=== PATIENT | male | born 1970 | race African-American/Black ===

== ENCOUNTER 2018-08-05 14:52 | Emergency (ER) | payer BC, MEDICARE ==
--- NOTE | 2018-08-05 15:07 | ER Document Report ---
ED Medical Screen (RME) - General Chief Complaint: Syncope Stated Complaint: POSSIBLE SYNCOPE Time Seen by Provider: 08/05/18 15:05 Primary Care Provider: OBIE AUGUSTE [Primary Care Provider] - Follow up as needed Mode of Arrival: Wheelchair Information source: Patient, Relative TRAVEL OUTSIDE OF THE [place] IN LAST 30 DAYS: No - HPI Patient complains to provider of: possible seizure Onset: Just prior to arrival - pt with possible seizure at [facility] this afternoon - Related Data Allergies/Adverse Reactions: No Known Allergies Allergy (Unverified 08/05/18 14:55) Physical Exam - Vital signs Vitals: Temp Pulse Resp BP Pulse Ox 97.6 F 80 16 110/72 99 08/05/18 14:55 08/05/18 14:55 08/05/18 14:55 08/05/18 14:55 08/05/18 14:55 Course - Vital Signs Vital signs: Temp Pulse Resp BP Pulse Ox 97.6 F 80 16 110/72 99 08/05/18 14:55 08/05/18 14:55 08/05/18 14:55 08/05/18 14:55 08/05/18 14:55 Doctor's Discharge - Discharge Referrals: OBIE AUGUSTE [Primary Care Provider] - Follow up as needed
[2018-08-05 15:48] LABS: ABSOLUTE BASOPHILS # (AUTO) 0.1 10^3/uL (0.0-0.2); ABSOLUTE LYMPHOCYTES (AUTO) 1.1 10^3/uL (0.5-4.7); ABSOLUTE MONOCYTES (AUTO) 0.4 10^3/uL (0.1-1.4); BASOPHILS % (AUTO) 1.2 % (0-2); EOSINOPHILS % (AUTO) 0.2 % (0-6); HEMATOCRIT 42.5 % (37.9-51.0); HEMOGLOBIN 14.5 g/dL (13.5-17.0); MEAN CORPUSCULAR HEMOGLOBIN 31.4 pg (27.0-33.4); MEAN CORPUSCULAR HGB CONC 34.1 g/dL (32.0-36.0); MEAN CORPUSCULAR VOLUME 92 fl (80-97); MONOCYTES % (AUTO) 9.4 % (3-13); PLATELET COUNT 153 10^3/uL (150-450); RED BLOOD COUNT 4.61 10^6/uL (4.35-5.55); RED CELL DISTRIBUTION WIDTH 14.4 % (11.5-14.0); SEGMENTED NEUTROPHILS % (AUTO) 65.2 % (42-78); TOTAL CELLS COUNTED % (AUTO) 100 %; WHITE BLOOD COUNT 4.6 10^3/uL (4.0-10.5)
[2018-08-05 15:56] LABS: APPEARANCE,URINE SLIGHTLY-CLOUDY; BILIRUBIN,URINE NEGATIVE (NEGATIVE); COLOR,URINE YELLOW; GLUCOSE, URINE 50 mg/dL (NEGATIVE); KETONES,URINE 20 mg/dL (NEGATIVE); LEUKOCYTE ESTERASE,URINE NEGATIVE (NEGATIVE); NITRITE,URINE NEGATIVE (NEGATIVE); PROTEIN,URINE 100 mg/dL (NEGATIVE); URINE SPECIFIC GRAVITY 1.021
[2018-08-05 16:00] LABS: ALANINE AMINOTRANSFERASE 32 U/L (21-72); ALBUMIN 4.8 g/dL (3.5-5.0); ALKALINE PHOSPHATASE 52 U/L (38-126); ANION GAP 10 (5-19); ASPARTATE AMINO TRANSFERASE 22 U/L (17-59); BILIRUBIN,DIRECT 0.1 mg/dL (0.0-0.4); BILIRUBIN,TOTAL 0.6 mg/dL (0.2-1.3); BLOOD UREA NITROGEN 14 mg/dL (7-20); CALCIUM 9.4 mg/dL (8.4-10.2); CARBON DIOXIDE 29 mmol/L (22-30); CHLORIDE 103 mmol/L (98-107); GLUCOSE 172 mg/dL (75-110); POTASSIUM 3.5 mmol/L (3.6-5.0); SODIUM 142.3 mmol/L (137-145); TOTAL PROTEIN 7.7 g/dL (6.3-8.2)
[2018-08-05 16:05] LABS: URINE AMPHETAMINES SCREEN NEGATIVE; URINE BARBITURATES SCREEN NEGATIVE; URINE BENZODIAZEPINES SCREEN NEGATIVE; URINE COCAINE SCREEN NEGATIVE; URINE MARIJUANA (THC) SCREEN NEGATIVE; URINE METHADONE SCREEN NEGATIVE; URINE PHENCYCLIDINE SCREEN NEGATIVE
[2018-08-05] MEDS ORDERED: NORMAL SALINE 1000 ML 1,000 ML IV ONE (17:14)
--- NOTE | 2018-08-05 17:28 | ER Document Report ---
ED General - General Chief Complaint: Syncope Stated Complaint: POSSIBLE SYNCOPE Time Seen by Provider: 08/05/18 15:05 Primary Care Provider: OBIE AUGUSTE [NO LOCAL MD] - Follow up as needed Mode of Arrival: Wheelchair Notes: 48-year-old male to the emergency department chief complaint of. Patient was in the yu chair getting a haircut when he slumped over appearing to be asleep. This happened twice. Patient has long-standing history of this happening. Family members are present in the room and states that this is been going on since the late . Patient denies any symptoms at this time. Denies any headache, fever, chills, sweats. Denies any neck stiffness. Denies any recent illness. Of note, patient is taking care of by his mother. She was in the hospital last week and he was pretty much on his own. Has not been eating well. Patient does state that he is hungry. TRAVEL OUTSIDE OF THE [place] IN LAST 30 DAYS: No - HPI Onset: Just prior to arrival Severity: Mild Pain Level: Denies Associated symptoms: Slow to respond - Related Data Allergies/Adverse Reactions: No Known Allergies Allergy (Unverified 08/05/18 14:55) Past Medical History - General Information source: Patient, Relative - Social History Smoking Status: Never Smoker Frequency of alcohol use: None Drug Abuse: None Lives with: Family Family History: Reviewed & Not Pertinent Patient has suicidal ideation: No Patient has homicidal ideation: No Neurological Medical History: Reports: Hx Seizures Renal/ Medical History: Denies: Hx Peritoneal Dialysis Psychiatric Medical History: Reports: Hx Schizophrenia Review of Systems - Review of Systems Notes: Constitutional: denies: Chills, Diaphoresis, Fever, Malaise, Weakness EENT: denies: Eye discharge, Blurred vision, Tearing, Double vision, Nose congestion, Nose discharge, Throat swelling, Mouth pain Cardiovascular: denies: Palpitations, Heart racing, Orthopnea, Dyspnea, Chest pain Respiratory: denies: Cough, Hurts to breathe, Wheezing, Shortness of breath Gastrointestinal: denies: Abdominal pain, Diarrhea, Nausea, Vomiting, Black stools, bright red blood in stool Genitourinary: denies: Burning, Dysuria, Discharge, Frequency, Flank pain, Hematuria Musculoskeletal: denies: Joint pain, Joint swelling, Muscle pain, Muscle stiffness, back pain Hematologic/Lymphatic: denies: Anemia, Easy bleeding, Easy bruising, Blood clots Neurological/Psychological: denies: Dementia, Depression, Loss of consciousness. Complaining of confusion and falling asleep Skin: No lesions, no masses, no skin breakdown, no abscesses Physical Exam - Vital signs Vitals: Temp Pulse Resp BP Pulse Ox 97.6 F 80 16 110/72 99 08/05/18 14:55 08/05/18 14:55 08/05/18 14:55 08/05/18 14:55 08/05/18 14:55 Interpretation: Normal - General General appearance: Appears well, Alert - HEENT Head: Normocephalic, Atraumatic Eyes: Normal Pupils: PERRL Neck: Normal, Supple. No: Brudzinski, Kernig's, Lymphadenopathy, Meningismus, Neck mass, Subcutaneous emphysema - Respiratory Respiratory status: No respiratory distress Chest status: Nontender Breath sounds: Normal Chest palpation: Normal - Cardiovascular Rhythm: Regular Heart sounds: Normal auscultation Murmur: No - Abdominal Inspection: Normal Distension: No distension Bowel sounds: Normal Tenderness: Nontender. No: Tender, McBurney's point, Remy's sign, Guarding Organomegaly: No organomegaly - Back Back: Normal, Nontender - Extremities General upper extremity: Normal inspection, Nontender, Normal color, Normal ROM, Normal temperature General lower extremity: Normal inspection, Nontender, Normal color, Normal ROM, Normal temperature, Normal weight bearing. No: Evaristo's sign - Neurological Neuro grossly intact: Yes Cognition: Normal Orientation: AAOx4 Jon Coma Scale Eye Opening: Spontaneous Jon Coma Scale Verbal: Oriented Jon Coma Scale Motor: Obeys Commands Jon Coma Scale Total: 15 Speech: Normal Motor strength normal: LUE, RUE, LLE, RLE Sensory: Normal - Psychological Associated symptoms: Normal affect, Normal mood - Skin Skin Temperature: Warm Skin Moisture: Dry Skin Color: Normal Course - Re-evaluation Re-evalutation: 08/05/18 17:35 Patient is a little sleepy. Patient has pretty severe schizophrenia so more lik carlos this represents a spectrum of his disease. He also has a history of seizure disorder in the record. More likely patient had a seizure. Also of note, he has had poor nutrition over the last week. Does have ketones in the urine. I did orthostatic vital signs on him. His systolic blood pressure dropped by 20 points. He was mildly symptomatic when going from lying to standing. I am giving him a liter bolus of fluid at this time. His EKG shows a normal sinus rhythm with no signs of ischemia. His labs reveal slightly elevated blood sugar with ketones and glucose in the urine. Drug screen is negative. He does not have a fever or elevated WBC count so unlikely this represents an infection. He has no nuchal rigidity so unlikely he has meningitis. He did not hit his head so unlikely trauma. Patient does not appear to have any acidosis. His venous pH is unremarkable. His hemoglobin A1c is 5. Feel comfortable discharging at this time. Has outpatient access to medical care. Family members are comfortable with this plan. I will discharge at this time in stable condition. 08/05/18 17:36 08/05/18 18:40 Laboratory 08/05/18 08/05/18 08/05/18 15:26 15:26 15:26 WBC 4.6 RBC 4.61 Hgb 14.5 Hct 42.5 MCV 92 MCH 31.4 MCHC 34.1 RDW 14.4 H Plt Count 153 Seg Neutrophils % 65.2 Lymphocytes % 24.0 Monocytes % 9.4 Eosinophils % 0.2 Basophils % 1.2 Absolute Neutrophils 3.0 Absolute Lymphocytes 1.1 Absolute Monocytes 0.4 Absolute Eosinophils 0.0 Absolute Basophils 0.1 VBG pH VBG pCO2 VBG HCO3 VBG Base Excess Sodium 142.3 Potassium 3.5 L Chloride 103 Carbon Dioxide 29 Anion Gap 10 BUN 14 Creatinine 0.97 Est GFR ( Amer) > 60 Est GFR (Non-Af Amer) > 60 Glucose 172 H Hemoglobin A1c % Calcium 9.4 Total Bilirubin 0.6 Direct Bilirubin 0.1 Neonat Total Bilirubin Not Reportable Neonat Direct Bilirubin Not Reportable Neonat Indirect Bili Not Reportable AST 22 ALT 32 Alkaline Phosphatase 52 Total Protein 7.7 Albumin 4.8 Urine Color YELLOW Urine Appearance SLIGHTLY-CLOUDY Urine pH 6.0 Ur Specific [place] 1.021 Urine Protein 100 H Urine Glucose (UA) 50 H Urine Ketones 20 H Urine Blood SMALL H Urine Nitrite NEGATIVE Urine Bilirubin NEGATIVE Urine Urobilinogen 4.0 H Ur Leukocyte Esterase NEGATIVE Urine WBC (Auto) 6 Urine RBC (Auto) 2 Squamous Epi Cells Auto <1 Urine Mucus (Auto) MOD Urine Ascorbic Acid NEGATIVE Urine Opiates Screen Urine Methadone Screen Ur Barbiturates Screen Ur Phencyclidine Scrn Ur Amphetamines Screen U Benzodiazepines Scrn Urine Cocaine Screen U Marijuana (THC) Screen 08/05/18 08/05/18 08/05/18 15:26 17:20 17:20 WBC RBC Hgb Hct MCV MCH MCHC RDW Plt Count Seg Neutrophils % Lymphocytes % Monocytes % Eosinophils % Basophils % Absolute Neutrophils Absolute Lymphocytes Absolute Monocytes Absolute Eosinophils Absolute Basophils VBG pH 7.38 VBG pCO2 52.5 VBG HCO3 30.5 VBG Base Excess 4.1 Sodium Potassium Chloride Carbon Dioxide Anion Gap BUN Creatinine Est GFR ( Amer) Est GFR (Non-Af Amer) Glucose Hemoglobin A1c % 5.0 Calcium Total Bilirubin Direct Bilirubin Neonat Total Bilirubin Neonat Direct Bilirubin Neonat Indirect Bili AST ALT Alkaline Phosphatase Total Protein Albumin Urine Color Urine Appearance Urine pH Ur Specific [place] Urine Protein Urine Glucose (UA) Urine Ketones Urine Blood Urine Nitrite Urine Bilirubin Urine Urobilinogen Ur Leukocyte Esterase Urine WBC (Auto) Urine RBC (Auto) Squamous Epi Cells Auto Urine Mucus (Auto) Urine Ascorbic Acid Urine Opiates Screen NEGATIVE Urine Methadone Screen NEGATIVE Ur Barbiturates Screen NEGATIVE Ur Phencyclidine Scrn NEGATIVE Ur Amphetamines Screen NEGATIVE U Benzodiazepines Scrn NEGATIVE Urine Cocaine Screen NEGATIVE U Marijuana (THC) Screen NEGATIVE - Vital Signs Vital signs: Temp Pulse Resp BP Pulse Ox 97.6 F 80 16 110/72 99 08/05/18 14:55 08/05/18 14:55 08/05/18 14:55 08/05/18 14:55 08/05/18 14:55 - Laboratory Result Diagrams: 08/05/18 15:26 08/05/18 15:26 Laboratory results interpreted by me: 08/05/18 08/05/18 08/05/18 15:26 15:26 15:26 RDW 14.4 H Potassium 3.5 L Glucose 172 H Urine Protein 100 H Urine Glucose (UA) 50 H Urine Ketones 20 H Urine Blood SMALL H Urine Urobilinogen 4.0 H - EKG Interpretation by Me EKG shows normal: Sinus rhythm, [place], Intervals, QRS Complexes, ST-T Waves Discharge - Discharge Clinical Impression: Altered mental status, unspecified Qualifiers: Altered mental status type: unspecified Qualified Code(s): R41.82 - Altered mental status, unspecified Condition: Good Disposition: HOME, SELF-CARE Instructions: Altered Mental Status ([facility]) Additional Instructions: Uncertain why you had the symptoms today. Make sure you are getting plenty of calories and eating regularly. Please return immediately for any worsening symptoms or concerns. Continue regular medications. Follow-up with your regular doctor soon as possible. Referrals: LOCALMD,NO [NO LOCAL MD] - Follow up as needed
[2018-08-05 17:40] LABS: VENOUS BLOOD BASE EXCESS 4.1 mmol/L; VENOUS BLOOD HCO3 30.5 mmol/L (20-32); VENOUS BLOOD PCO2 52.5 mmHg (35-63); VENOUS BLOOD PH 7.38 (7.30-7.42)
[2018-08-05 18:59] VITALS: BP 129/84
--- NOTE | 2018-08-05 19:20 | EKG REPORT ---
SEVERITY:- NORMAL ECG - SINUS RHYTHM : Confirmed by: Bree Mullins 05-Aug-2018 19:19:38
== END 2018-08-05 18:55 | disposition home or self-care (01) ==
LOC: ER 14:52
DX: R41.0 Disorientation, unspecified (principal); F20.9 Schizophrenia, unspecified; R73.9 Hyperglycemia, unspecified; Z86.79 Personal history of other diseases of the circulatory system
CPT/HCPCS: 93005; 99284; 96360; 36415; 85025; 80053; 81001; 80307; 83036; 82803; 93010; J7030

== ENCOUNTER 2019-12-10 11:06 | Emergency (ER) | payer MEDICARE ==
[2019-12-10 11:53] LABS: ABSOLUTE LYMPHOCYTES (AUTO) 1.4 10^3/uL (0.5-4.7); ABSOLUTE MONOCYTES (AUTO) 0.4 10^3/uL (0.1-1.4); ABSOLUTE NEUT (AUTO) 1.6 10^3/uL (1.7-8.2); BASOPHILS % (AUTO) 0.7 % (0-2); EOSINOPHILS % (AUTO) 0.5 % (0-6); HEMATOCRIT 39.5 % (37.9-51.0); HEMOGLOBIN 13.7 g/dL (13.5-17.0); LYMPHOCYTES % (AUTO) 41.1 % (13-45); MEAN CORPUSCULAR HEMOGLOBIN 31.3 pg (27.0-33.4); MEAN CORPUSCULAR HGB CONC 34.7 g/dL (32.0-36.0); MEAN CORPUSCULAR VOLUME 90 fl (80-97); MONOCYTES % (AUTO) 11.9 % (3-13); PLATELET COUNT 160 10^3/uL (150-450); RED BLOOD COUNT 4.37 10^6/uL (4.35-5.55); RED CELL DISTRIBUTION WIDTH 14.5 % (11.5-14.0); SEGMENTED NEUTROPHILS % (AUTO) 45.8 % (42-78); TOTAL CELLS COUNTED % (AUTO) 100 %; WHITE BLOOD COUNT 3.5 10^3/uL (4.0-10.5)
[2019-12-10 12:15] LABS: ALBUMIN 4.2 g/dL (3.5-5.0); ALKALINE PHOSPHATASE 50 U/L (38-126); ANION GAP 8 (5-19); ASPARTATE AMINO TRANSFERASE 22 U/L (17-59); BILIRUBIN,TOTAL 0.3 mg/dL (0.2-1.3); BLOOD UREA NITROGEN 13 mg/dL (7-20); CALCIUM 8.8 mg/dL (8.4-10.2); CARBON DIOXIDE 24 mmol/L (22-30); CHLORIDE 107 mmol/L (98-107); GLUCOSE 124 mg/dL (75-110); POTASSIUM 3.6 mmol/L (3.6-5.0); TOTAL PROTEIN 7.2 g/dL (6.3-8.2)
[2019-12-10 12:29] LABS: ALCOHOL < 10 mg/dL (NONE DETECTED)
[2019-12-10 12:44] LABS: APPEARANCE,URINE CLEAR; BILIRUBIN,URINE NEGATIVE (NEGATIVE); COLOR,URINE YELLOW; GLUCOSE, URINE NEGATIVE (NEGATIVE); KETONES,URINE 20 mg/dL (NEGATIVE); LEUKOCYTE ESTERASE,URINE NEGATIVE (NEGATIVE); NITRITE,URINE NEGATIVE (NEGATIVE); PROTEIN,URINE 100 mg/dL (NEGATIVE); URINE SPECIFIC GRAVITY 1.024
[2019-12-10 13:00] LABS: URINE AMPHETAMINES SCREEN NEGATIVE; URINE BARBITURATES SCREEN NEGATIVE; URINE BENZODIAZEPINES SCREEN NEGATIVE; URINE COCAINE SCREEN NEGATIVE; URINE MARIJUANA (THC) SCREEN NEGATIVE; URINE METHADONE SCREEN NEGATIVE; URINE PHENCYCLIDINE SCREEN NEGATIVE
--- NOTE | 2019-12-10 13:13 | EKG REPORT ---
SEVERITY:- NORMAL ECG - SINUS RHYTHM : Confirmed by: Marcos Yepez MD 10-Dec-2019 13:12:42
[2019-12-10] MEDS ORDERED: NORMAL SALINE 1000 ML 1,000 ML IV ONE (14:11)
--- NOTE | 2019-12-10 14:42 | ER Document Report ---
Entered by ZOE SCHULTE SCRIBE 12/10/19 1137 Acting as scribe for:TONY QUINTERO MD ED Seizure - General Chief Complaint: Seizure Stated Complaint: ALTERED MENTAL STATUS Mode of Arrival: Ambulatory Information source: Patient Notes: This 49 year old male patient presents to the emergency department today with complaints of seizure-like activity. [facility], this patient was seen on 08/05/2018 for a similar complaint and at that time the patient's mother told the provider that he has had "falling out episodes" in the past but has never been diagnosed with epilepsy per history, also is not prescribed any epileptic medication. - HPI Patient complains to provider of: History of seizures - Related Data Allergies/Adverse Reactions: No Known Allergies Allergy (Unverified 08/05/18 14:55) Home Medications: Invega Past Medical History - General Information source: Patient - Social History Smoking Status: Never Smoker Cigarette use (# per day): No Frequency of alcohol use: None Drug Abuse: None Lives with: Family Family History: Reviewed & Not Pertinent Patient has homicidal ideation: No Neurological Medical History: Reports: Hx Seizures - "falling out spells" Psychiatric Medical History: Reports: Hx Schizophrenia Surgical Hx: Negative Review of Systems - Review of Systems Constitutional: No symptoms reported EENT: No symptoms reported Cardiovascular: No symptoms reported Respiratory: No symptoms reported Gastrointestinal: No symptoms reported Genitourinary: No symptoms reported Male Genitourinary: No symptoms reported Musculoskeletal: No symptoms reported Skin: No symptoms reported Hematologic/Lymphatic: No symptoms reported Neurological/Psychological: See HPI, Seizure - ? -: Yes All other systems reviewed and negative Physical Exam - Vital signs Vitals: Resp Pulse Ox 18 98 12/10/19 11:14 12/10/19 11:14 - Notes Notes: Physical Exam: General: Alert, appears well. HEENT: Normocephalic. Atraumatic. PERRL. Extraocular movements intact. [place] rynx clear. Neck: Supple. Non-tender. Respiratory: No respiratory distress. Clear and equal breath sounds bilaterally. Cardiovascular: Regular rate and rhythm. Abdominal: Normal Inspection. Non-tender. No distension. Normal Bowel Sounds. Back: No gross abnormalities. Extremities: Moves all four extremities. Upper extremities: Normal inspection. Normal ROM. Lower extremities: Normal inspection. No edema. Normal ROM. Neurological: Normal cognition. AAOx4. Normal speech. Psychological: Normal affect. Normal Mood. Skin: Warm. Dry. Normal color. Course - Vital Signs Vital signs: Temp Pulse Resp BP Pulse Ox 97.8 F 79 19 118/82 99 12/10/19 11:19 12/10/19 11:19 12/10/19 13:01 12/10/19 13:01 12/10/19 13:01 - Laboratory Result Diagrams: 12/10/19 11:18 12/10/19 11:18 Laboratory results interpreted by me: 12/10/19 12/10/19 12/10/19 11:17 11:18 11:18 WBC 3.5 L RDW 14.5 H Absolute Neuts (auto) 1.6 L Glucose 124 H POC Glucose 122 H Urine Protein Urine Ketones Urine Urobilinogen 12/10/19 12:25 WBC RDW Absolute Neuts (auto) Glucose POC Glucose Urine Protein 100 H Urine Ketones 20 H Urine Urobilinogen 2.0 H - EKG Interpretation by Me EKG shows normal: Sinus rhythm, [place], Intervals, QRS Complexes, ST-T Waves Rate: Normal - 74 Rhythm: NSR Discharge - Discharge Clinical Impression: Absence seizure Condition: Stable Disposition: HOME, SELF-CARE Additional Instructions: You most likely had an absence seizure. When these type of seizures occur, the patient seems to be unconscious and there is no shaking. You reported that you had a similar episode a little over a year ago, and you were actually seen here on August 05, 2018 for one of these episodes. If these blackout seizure episodes become more frequent, then you should follow- up with a neurologist. Otherwise continue your regular medications and follow-up with your primary care provider as needed. RETURN TO THE EMERGENCY ROOM IF ANY NEW OR WORSENING SYMPTOMS. I personally performed the services described in the documentation, reviewed and edited the documentation which was dictated to the scribe in my presence, and it accurately records my words and actions.
[2019-12-10 15:35] VITALS: BP 127/89
== END 2019-12-10 15:36 | disposition home or self-care (01) ==
LOC: ER 11:06
DX: R56.9 Unspecified convulsions (principal); R41.82 Altered mental status, unspecified
CPT/HCPCS: 93005; 99284; 96360; 36415; 82962; 80307 ×2; 83735; 85025; 80053; 81001; 93010; J7030